=== PATIENT | male | born 1975 | race Caucasian/White ===

== ENCOUNTER 2023-02-02 10:23 | Emergency (ER) | payer OTHER, SELFPAY ==
[2023-02-02 10:37] VITALS: BP 134/84; PULSE 74; RESP 16; TEMP 36.9; O2SAT 100
--- NOTE | 2023-02-02 11:25 | ED.EAR ---
HPI - Ear Problem General Chief complaint: Ear Stated complaint: right ear pain/swollen Source: patient and RN notes reviewed History of Present Illness HPI Narrative: 47-year-old male presents to urgent care with complaints right ear pain and swelling. Pt states this started on Thursday night has just gotten worse. Patient denies any fevers, chills, congestion, or sore throat. Patient has taken over the counter ear drops with no relief. Related Data Home Medications Medication Instructions Recorded Confirmed alprazolam 1 mg tablet mg 02/02/23 Allergies Allergy/AdvReac Type Severity Reaction Status Date / Time No Known Allergies Allergy Verified 02/02/23 10:34 Review of Systems Review of Systems: CONSTITUTIONAL: Denies fever, chills, or sweats. EYES: Denies visual changes, redness, or discharge. ENT: Right ear pain CARDIOVASCULAR: Denies chest pain, palpitations, or edema. RESPIRATORY: Denies cough or dyspnea. GASTROINTESTINAL: Denies abdominal pain, nausea, vomiting, or diarrhea. GENITOURINARY: Denies dysuria or hematuria. SKIN: Denies rash or itching. MUSCULOSKELETAL: Denies back pain, joint pain, or myalgia. NEUROLOGIC: Denies headache, numbness, or weakness. Pertinent positives per HPI. PMFSH Comments At the time of my signature, I reviewed and agree with the nursing past medical, surgical, social, and family history. There is no relevant family history pertinent to the patient complaint. Exam Narrative: GENERAL: This is a well-nourished, well-developed patient, in no apparent distress. HEAD: normocephalic, atraumatic. EYES: Sclera clear/white. Vision is grossly intact. EARS:Right canal erythremic and edematous extending to anterior ear and tragus. no drainage noted. no posterior tenderness. NOSE: External nose normal with no obvious nasal discharge, nares without redness, no rhinorrhea. THROAT: Mucous membranes moist, posterior pharynx clear. NECK: Neck supple, non-tender without lymphadenopathy, masses or thyromegaly. CARDIOVASCULAR: Regular rate RESPIRATORY: No respiratory distress SKIN: warm, intact with no suspicious lesions or rash, good texture and turgor. NEURO: awake, alert, and oriented to person, place and time. There were no obvious focal neurologic abnormalities. Course Course Level of Care: Express Care Visit Vital Signs Vital signs: Vital Signs Temperature 98.5 F 02/02/23 10:37 Pulse Rate 74 02/02/23 10:37 Respiratory Rate 16 02/02/23 10:37 Blood Pressure 134/84 02/02/23 10:37 Pulse Oximetry 100 02/02/23 10:37 Oxygen Delivery Room Air 02/02/23 10:37 Temperature 98.5 F 02/02/23 10:37 Pulse Rate 74 02/02/23 10:37 Respiratory Rate 16 02/02/23 10:37 Blood Pressure 134/84 02/02/23 10:37 Pulse Oximetry 100 02/02/23 10:37 Oxygen Delivery Room Air 02/02/23 10:37 reviewed Medical Decision Making MDM Narrative Medical decision making narrative: Take antibiotics as directed. May given ibuprofen and/or Tylenol as needed for pain and/or fever. Follow up with primary care provider in 7-10 days to have ear rechecked. Differential Diagnosis Differential Diagnosis: Acute otitis media, otitis externa, malignant otitis externa Vital Signs Vital Signs: Vital Signs Temperature 98.5 F 02/02/23 10:37 Pulse Rate 74 02/02/23 10:37 Respiratory Rate 16 02/02/23 10:37 Blood Pressure 134/84 02/02/23 10:37 Pulse Oximetry 100 02/02/23 10:37 Oxygen Delivery Room Air 02/02/23 10:37 Temperature 98.5 F 02/02/23 10:37 Pulse Rate 74 02/02/23 10:37 Respiratory Rate 16 02/02/23 10:37 Blood Pressure 134/84 02/02/23 10:37 Pulse Oximetry 100 02/02/23 10:37 Oxygen Delivery Room Air 02/02/23 10:37 Critical Care Time Critical Care Time Critical Care Time: No Discharge Plan Discharge Clinical Impression: Otitis media Qualifiers: Otitis media type: unspecified Chronicity: acute Qualified C
== END 2023-02-02 11:36 | disposition home or self-care (01) ==
PROVIDERS: Emergency Provider Nurse Practitioner Family
DX: H66.91 Otitis media, unspecified, right ear (principal); H60.501 Unspecified acute noninfective otitis externa, right ear; I10 Essential (primary) hypertension
CPT/HCPCS: 99203; G0463